=== PATIENT | female | born 1990 | race Two or more races ===

== ENCOUNTER 2018-08-19 10:31 | Outpatient (CLI) | payer SELFPAY ==
[2018-08-19 12:35] LABS: ADD UMIC NO; UR ASCORBIC ACID NEGATIVE (NEGATIVE); UR BILIRUBIN (Dip) NEGATIVE (NEGATIVE); UR BLOOD (Dip) NEGATIVE (NEGATIVE); UR CLARITY CLEAR (CLEAR); UR COLOR STRAW (YELLOW); UR GLUCOSE (Dip) NEGATIVE (NEGATIVE); UR KETONES (Dip) NEGATIVE (NEGATIVE); UR LEUKOCYTE ESTERASE (Dip) NEGATIVE Leu/ul (NEGATIVE); UR NITRITE (Dip) NEGATIVE (NEGATIVE); UR SPECIFIC GRAVITY (Dip) 1.005 (1.003-1.030); UR TOTAL PROTEIN (Dip) NEGATIVE (NEGATIVE); UR UROBILINOGEN (Dip) NEGATIVE (NEGATIVE)
== END 2018-08-19 14:00 | disposition home or self-care (01) ==
LOC: OBT 10:31 → L-D 10:31 → OBT 14:00
DX: O46.8X2 Other antepartum hemorrhage, second trimester (principal); Z3A.27 27 weeks gestation of pregnancy
CPT/HCPCS: 36415; 76817; 81003; 86850; 86900; 86901

== ENCOUNTER 2018-10-27 14:37 | Outpatient (CLI) | payer MEDICAID | END 2018-10-27 16:00 | disposition home or self-care (01) | LOC: OBT 14:37 → L-D 14:37 → OBT 16:00 | DX: O26.03 Excessive weight gain in pregnancy, third trimester (principal); Z3A.37 37 weeks gestation of pregnancy | CPT/HCPCS: 76815; 76818 ==

== ENCOUNTER 2018-11-10 01:49 | Inpatient (IN) | payer MEDICAID ==
[2018-11-10 03:27] LABS: RUPTURE FETAL MEMBRANES POSITIVE (NEGATIVE)
[2018-11-10] MEDS ORDERED: CARBOPROST 250 MCG INJ IM ×2 (04:00→18:30)
[2018-11-10] MEDS ORDERED: OXYTOCIN 30 UNITS/LR 500 ML IV ×2 (04:00→18:30)
[2018-11-10] MEDS ORDERED: METHYLERGONOVINE 0.2 MG INJ IM ×2 (04:00→18:30)
[2018-11-10] MEDS ORDERED: MISOPROSTOL 200 MCG TAB PR ×2 (04:00→18:30)
[2018-11-10] MEDS ORDERED: BUTORPHANOL 2 MG INJ IV (04:00)
[2018-11-10] MEDS ORDERED: LIDOCAINE 1% (MPF) 30 ML INJ INJ (04:00)
[2018-11-10] MEDS: LACTATED RINGER'S 1,000 ML IV ×2 (05:43→11:24)
[2018-11-10 06:07] LABS: ADD MAN DIFF? NO
[2018-11-10 06:20] LABS: WHITE BLOOD COUNT 10.1 10^3/ul (4.8-10.8)
[2018-11-10 06:20] LABS: ABNORMAL IP MESSAGE 1; BASOPHIL # 0.1 10^3/ul (0.0-0.1); BASOPHILS % 0.6 % (0.0-2.0); EOSINOPHILS # 0.1 10^3/ul (0.0-0.5); EOSINOPHILS % 1.3 % (0.0-7.0); HEMATOCRIT 36.1 % (37.0-47.0); HEMOGLOBIN 11.4 g/dl (12.0-16.0); LYMPHOCYTES # 1.7 10^3/ul (0.8-2.9); LYMPHOCYTES % 17.2 % (15.0-51.0); MEAN CORPUSCULAR HEMOGLOBIN 24.5 pg (29.0-33.0); MEAN CORPUSCULAR HGB CONC 31.6 g/dl (32.0-37.0); MEAN CORPUSCULAR VOLUME 77.6 fl (82.0-101.0); MEAN PLATELET VOLUME 13.1 fl (7.4-10.4); MONOCYTE # 0.5 10^3/ul (0.3-0.9); NEUTROPHIL # 7.6 10^3/ul (1.6-7.5); NEUTROPHILS % 75.2 % (39.0-77.0); PLATELET COUNT 150 10^3/UL (140-415); RED BLOOD COUNT 4.65 10^6/ul (4.20-5.40); RED CELL DISTRIBUTION WIDTH 14.8 % (11.5-14.5)
[2018-11-10 06:32] LABS: POSITIVE DIFF @See below
[2018-11-10 06:35] LABS: INR 0.86; PROTIME 11.8 Sec (11.9-14.9); PT RATIO 0.9
[2018-11-10 06:36] LABS: PARTIAL THROMBOPLASTIN TIME 23.7 Sec (23.0-35.0)
[2018-11-10] MEDS: OXYTOCIN 30 UNITS/LR 500 ML IV ×3 (06:36→17:24)
[2018-11-10 07:08] LABS: HEPATITIS B SURFACE ANTIGEN NEGATIVE (NEGATIVE)
[2018-11-10] MEDS ORDERED: FENTAnyl 2MCG/ML-ROPIV 0.2% 100 ML (13:44)
[2018-11-10] MEDS ORDERED: NALOXONE (0.4 MG/ML) INJ IV (14:30)
[2018-11-10] MEDS ORDERED: FENTAnyl 2MCG/ML-ROPIV 0.2% 100 ML BAG EPI (14:30)
[2018-11-10] MEDS ORDERED: DIPHENHYDRAMINE 50 MG INJ IV (14:30)
[2018-11-10] MEDS ORDERED: ONDANSETRON 4 MG INJ IV (14:30)
[2018-11-10] MEDS ORDERED: MINERAL OIL LIGHT 10 ML VIAL (15:07)
[2018-11-10 15:16] LABS: RAPID PLASMA REAGIN NONREACTIVE (NR)
[2018-11-10] MEDS: MINERAL OIL LIGHT 10 ML VIAL TOP (15:30)
[2018-11-10] MEDS ORDERED: PHYTONADIONE 1 MG/0.5 ML SYG (17:03)
[2018-11-10] MEDS ORDERED: ERYTHROMYCIN 1 GM OPH OINT (17:03)
[2018-11-10] MEDS ORDERED: HYDROCODONE/APAP (5/325) TAB PO (18:30)
[2018-11-10] MEDS ORDERED: ACETAMINOPHEN 325 MG TAB PO (18:30)
[2018-11-10] MEDS: BENZOCAINE 20% 56 ML SPRAY TOP (18:40)
[2018-11-10] MEDS: DIBUCAINE 1% 30 GM OINT TOP (18:40)
[2018-11-10] MEDS: WITCH HAZEL/GLYCERIN PAD PR (18:41)
[2018-11-10] MEDS: IBUPROFEN 600 MG TAB PO ×2 (18:49→23:40)
[2018-11-10] MEDS: LACTATED RINGER'S 1,000 ML IV* (20:36)
[2018-11-10] MEDS: SENNA/DOCUSATE NA (8.6MG/50MG) TAB PO (20:39)
[2018-11-11] MEDS: IBUPROFEN 600 MG TAB PO ×3 (06:56→17:46)
[2018-11-11 07:52] LABS: ADD MAN DIFF? NO
[2018-11-11 07:58] LABS: WHITE BLOOD COUNT 12.3 10^3/ul (4.8-10.8)
[2018-11-11 07:58] LABS: ABNORMAL IP MESSAGE 1; BASOPHILS % 0.3 % (0.0-2.0); EOSINOPHILS # 0.1 10^3/ul (0.0-0.5); EOSINOPHILS % 0.6 % (0.0-7.0); HEMATOCRIT 33.9 % (37.0-47.0); HEMOGLOBIN 10.6 g/dl (12.0-16.0); LYMPHOCYTES # 1.8 10^3/ul (0.8-2.9); LYMPHOCYTES % 14.7 % (15.0-51.0); MEAN CORPUSCULAR HEMOGLOBIN 24.6 pg (29.0-33.0); MEAN CORPUSCULAR HGB CONC 31.3 g/dl (32.0-37.0); MEAN CORPUSCULAR VOLUME 78.7 fl (82.0-101.0); MEAN PLATELET VOLUME 13.5 fl (7.4-10.4); MONOCYTE # 0.9 10^3/ul (0.3-0.9); NEUTROPHIL # 9.5 10^3/ul (1.6-7.5); NEUTROPHILS % 76.6 % (39.0-77.0); PLATELET COUNT 140 10^3/UL (140-415); RED BLOOD COUNT 4.31 10^6/ul (4.20-5.40); RED CELL DISTRIBUTION WIDTH 14.9 % (11.5-14.5)
[2018-11-11 08:00] LABS: POSITIVE DIFF @See below
[2018-11-11] MEDS: SENNA/DOCUSATE NA (8.6MG/50MG) TAB PO ×2 (09:00→21:52)
[2018-11-12] MEDS: IBUPROFEN 600 MG TAB PO ×3 (05:41→12:29)
[2018-11-12] MEDS: SENNA/DOCUSATE NA (8.6MG/50MG) TAB PO (08:48)
[2018-11-12] MEDS: DIPHTH/TET/ACEL PERTUSS (ADULT) 0.5 ML VIAL IM* (12:30)
== END 2018-11-12 14:21 | disposition home or self-care (01) | DRG 807 ==
LOC: OBT 01:49 → L-D 01:49 → OBT 04:00 → L-D 04:00 → PP1 18:07
PROVIDERS: Obstetrics & Gynecology
PROC: 10E0XZZ Delivery of Products of Conception, External Approach (ICD-10-PCS; principal; 2018-11-10)
PROC: 0HQ9XZZ Repair Perineum Skin, External Approach (ICD-10-PCS; 2018-11-10)
DX: O70.9 Perineal laceration during delivery, unspecified (principal); Z37.0 Single live birth; Z3A.39 39 weeks gestation of pregnancy
CPT/HCPCS: 62319; 76815; 84112; 85025; 85610; 85730; 86592; 86850; 86900; 86901; 87340; 90715; J3430